=== PATIENT | female | born 1935 | race Asian ===

== ENCOUNTER 2018-10-13 09:27 | Inpatient (IN) | payer OTHER ==
[~2018-10-13] VITALS: Ht 152.4 cm; Wt 39.0 kg
[2018-10-13 09:38] VITALS: Ht 152.4 cm; Wt 39.0 kg
--- NOTE | 2018-10-13 10:11 | NUR ---
AWAKE ALERT ORIENTED ,SON BESIDES BED WHO SPEAKS MOTHER LANGUAGE STATED SHE HAS HIGH BLOOD PRESSURE SINDE 11 DAYS ,IMPROVES WHEN TAKING BP MEDS,ALSO HAS PRESSURE IN HER HEAD, TOOK BP MEDS AT 7AM TODAY
[2018-10-13 10:51] LABS: BASOPHIL % 0.7 % (0-2); PLATELET COUNT 130 x10^3mcL (130-400)
--- NOTE | 2018-10-13 11:00 | NUR ---
FEELS ESTEFANIA, BP IMPROVING SYSTOLIC 178.WALKED STAEDY TO BATHROOM
[2018-10-13 11:26] LABS: CALCIUM 9.3 mg/dL (8.5-10.1); CARBON DIOXIDE 32.9 mmol/L (21-32); CHLORIDE SERUM 106 mmol/L (98-107); GLUCOSE SERUM 94 mg/dL (74-106); POTASSIUM SERUM 4.2 mmol/L (3.5-5.1); SODIUM SERUM 144 mmol/L (136-145)
[2018-10-13 11:31] LABS: ALKALINE PHOSPHATASE 75 U/L (46-116); ALT/SGPT 20 U/L (14-59); AST/SGOT 23 U/L (15-37); BILIRUBIN TOTAL 0.8 mg/dL (0.20-1.00)
--- NOTE | 2018-10-13 12:14 | NUR ---
RESTING IN BED NO COMPLAINTS, PER SON AT TIMES HAS CHEST PRESSURE
[2018-10-13] MEDS ORDERED: ZESTRIL5 MG PO (12:48)
[2018-10-13] MEDS ORDERED: CATAPRES0.1 MG PO (12:49)
--- NOTE | 2018-10-13 12:58 | NUR ---
REPORT TAKEN FROM ER NURSE OVER THE PHONE, WAITING FOR PT TO ARRIVE TO THE UNIT.
--- NOTE | 2018-10-13 13:02 | NUR ---
PT ARRIVED TO THE UNIT AT THIS TIME, AMBULATORY TO THE BED.
[2018-10-13 13:13] VITALS: BP 135/58
--- NOTE | 2018-10-13 13:16 | NUR ---
RECEIVED PT FROM ED VIA STEVE. ORIENTED PT TO ROOM AND SURROUNDINGS. IV NOTED TO LAC PATENT AND INTACT. TELE 4 PLACED ON PT READING NSR. INSTRUCTED PT ON THE USE OF CALL LIGHT FOR ASSISTANCE. ENDORSED PT TO PRIMARY NURSE FREDY
[2018-10-13 13:21] LABS: MAGNESIUM 1.7 mg/dL (1.8-2.4); PHOSPHOROUS 3.8 mg/dL (2.5-4.9)
[2018-10-13 13:22] LABS: CHOLESTEROL/HDL RATIO 2.2
[2018-10-13 16:52] VITALS: BP 104/41
--- NOTE | 2018-10-13 18:50 | NUR ---
PT TOLERATED TREATMENT WELL, IN NAD, WILL REPORT TO AIRWAY CONTROLLER NURSE AND ENDORSE CARE
--- NOTE | 2018-10-13 19:21 | NUR ---
REPORT GIVEN TO CEMENT CONTRACTOR NURSE, CARE ENDORSED
--- NOTE | 2018-10-13 19:23 | NUR ---
RECEIVED REPORT FROM AM NURSE, PT IN BED RESTING. PT AAOX4, SPANISH SPEAKING ONLY. ON TELE#4, DENIES CP/PRESSURE AT THIS TITME. PALPABLE PULSES TO BLE AND BUE, NO EDEMA NOTED. LUNG SOUNDS CTA ON RA, BREATHING EVEN AND UNLABORED, NO SIGNS OF ACUTE DISTRESS NOTED. ABD SOFT AND FLAT, ACTIVE BOWEL SOUNDS X4 QUAD. DENIES N/V AT THIS TIME. VOIDS FREELY BRP. GENERALIZED WEAKNESS, ABLE TO AMBULATE WITH MINIMUM ASSIST. NS RUNNING TO LAC AT 50ML/HR, SITE FREE FROM REDNESS AND SWELLING. FALL PREACATIONS IN PLACE. CALL LIGHT WITHING REACH. WILL CONTINUE TO MONITOR.
[2018-10-13 20:29] VITALS: BP 112/49
--- NOTE | 2018-10-14 01:08 | NUR ---
PT IN BED SLEEPING COMFORTABLY, BREATHING EVEN AND UNLABORED, NO SIGNS OF ACUTE DISTRESS NOTED. BED AT LOWEST POSTION, CALL LIGHT WITHING REACH. WILL CONTINUE TO MONITOR.
[2018-10-14 04:28] LABS: BASOPHIL % 0.7 % (0-2); RED CELL DISTRIBUTION WIDTH 13.2 % (11.5-14.5)
[2018-10-14 04:31] LABS: PLATELET COUNT 116 x10^3mcL (130-400)
[2018-10-14 04:38] LABS: CALCIUM 8.3 mg/dL (8.5-10.1); CARBON DIOXIDE 31.4 mmol/L (21-32); CHLORIDE SERUM 108 mmol/L (98-107); GLUCOSE SERUM 86 mg/dL (74-106); MAGNESIUM 1.7 mg/dL (1.8-2.4); PHOSPHOROUS 3.2 mg/dL (2.5-4.9); POTASSIUM SERUM 3.9 mmol/L (3.5-5.1); SODIUM SERUM 145 mmol/L (136-145)
[2018-10-14 05:12] VITALS: BP 150/56
--- NOTE | 2018-10-14 06:21 | NUR ---
PT SLEPT WELL THROUGHOUT THE NIGHT. BREATHING EVEN AND UNLBORED ON RA. NO ACUTE DISTRESS NOTED. ALL NEEDS ASSESSED AND ATTENDED TO. IV TO LAC INFUSING WELL, SITE WNL. BED AT LOWEST SETTING, CALL LIGHT WITHING REACH. WILL ENDORSE CARE TO AM NURSE.
--- NOTE | 2018-10-14 07:00 | NUR ---
RECEIVED BEDSIDE REPORT FROM CELLOPHANER NURSE. PATIENT IS STABLE NO APPARENT SIGNS OF PAIN, SOB, OR RESPIRATORY DISTRESS. ON ROOM AIR. PATIENT IS RESTING COMFORTABLY IN BED. IV TO LAC IS INFUSING WELL. NO EDEMA OR ERYTHEMA NOTED AT SITE. SCD'S AT BEDSIDE. BED IN LOW POSITION, CALL LIGHT WITHIN REACH. BEDRAILS UP X2. PATIENT SPEAKS MADRIN AND THERE IS A LANGUAGE BARRIER. THE SON MADE A PAPER WITH SOME COMMON WORDS SUCH A PAIN, CHEST PAIN, SIM, [place], BATHROOM, AND CALL SON. PATIENT ABLE TO MAKE NEEDS KNOWN. SAFETY PRECAUTIONS IN PLACE.
--- NOTE | 2018-10-14 07:35 | NUR ---
PHYSICAL ASSESSMENT COMPLETED. PLEASE SEE PROBLEM FOCUSED CARE FOR DETAILS.
--- NOTE | 2018-10-14 07:42 | NUR ---
RECEIVED CALL FROM NUCLEAR MED. PATIENT TO BED PICKED UP AT ABOUT 930. CARDIAC SPIN INSTRUCTOR AT BEDSIDE.
[2018-10-14 07:45] VITALS: BP 149/45
--- NOTE | 2018-10-14 07:49 | NUR ---
PATIENT'S SON CALLED STATED HE WILL BE HERE BEFORE 9AM HE IS ABLE TO HELP WITH COMMUNICATION.
--- NOTE | 2018-10-14 09:37 | NUR ---
ADMINISTERED MEDICATION PER EMAR. PATIENT IS STABLE NO APPARENT SIGNS OF PAIN, SOB, OR RESPIRATORY DISTRESS. TOLORATED WELL. EDUCATED ON NEED FOR MEDICATION, AND ADVERSE EFFECTS TO REPORT. PATIENT SPEAKS MANDARIN AND SON ABLE TO HELP WITH COMMUNICATION. PATIENT AND SON VERBALIZED UNDERSTANDING. QUESTIONS AND CONCERNS ADDRESSED, SAFETY PRECAUTIONS IN PLACE. NUCLEAR MED AT BEDSIDE EXPLAINING PROCEDURE TO SON AND PATIENT. CONSENT SIGNED AND WITNESSED.
--- NOTE | 2018-10-14 10:00 | NUR ---
PATIENT DOWN TO [facility] FOR [facility]DRA SCAN.
--- NOTE | 2018-10-14 11:51 | NUR ---
REVEIVED CALL FROM [email or web address] THAT PATIENT HAD HIGH BP. ELECTRIC SHOVEL OPERATOR ORDERED HYDRALAZINE 10MG IV PUSH ONCE. PATIENT DOWN AT [facility]. UNABLE TO SCAN. PER LAMONT [facility]Y SCAN THROUGH EMAR SCAN MEDICATION. VERIFY MEDICATION AND DOSE WITH CHARGE NURSE ABELARDO. MANUALLY ENTERED SCAN, MEDICATION AND DOSE VERIFIED. MEDICATION ADMINISTERED IN [email or web address].
--- NOTE | 2018-10-14 12:34 | NUR ---
UNALBLE TO ADMINISTER MEDICATIONS. PATIENT IS STILL IN NUC MED FOR [facility]A SCAN.
--- NOTE | 2018-10-14 13:10 | NUR ---
RECEIVED CALL FROM [facility], PATIENT IS IN NUC MED FOR [facility]EXISC[facility], PATIENT C/O CONSTIPATION. PAGED MD TO MAKE AWARE OF PATIENT SYMPTOMS. WAITING FOR CALL BACK.
--- NOTE | 2018-10-14 13:14 | NUR ---
LEXISCAN STRESS TEST DONE
--- NOTE | 2018-10-14 13:17 | NUR ---
RECEIVED CALL FROM MD MUNOZ. MADE AWARE OF PATIENT C/O CONSTIPATION. MD WILL ADD MEDICATION TO THE PATIENT'S EMAR.
--- NOTE | 2018-10-14 15:15 | NUR ---
PATIENT BACK FROM [facility]. PATIENT STABLE NO APPARENT SIGNS OF PAIN, SOB, OR RESPIRATORY DISTRESS. PATIENT C/O CONSTIPATION AND ABD PAIN. AND FLAT FIRM, TENDER TO PALPATION. ADMINISTERED METAMUCIL PER EMAR. PATIENT EDUCATED ON NEED FOR MEDICATION AND ADVERSE REACTIONS TO REPORT. CALL LIGHT WITH IN REACH. FAMILY AT BEDSIDE. QUESTIONS AND CONCERNS ADDRESSED. SAFETY PRECAUTIONS IN PLACE.
[2018-10-14 16:28] VITALS: BP 167/53
--- NOTE | 2018-10-14 17:35 | NUR ---
CONTACTED PHARMACY TO RE SUBMIT MEDICATION SCHEDULED AT 1100 PATIENT WAS NOT ON THE FLOOR. PATIENT WAS AT [facility]. MEDICATION WAS ADMINISTERED. PATIENT TOLORATED WELL. SON AT BEDSIDE TO ASSISST WITH COMMUNICATION. CALL LIGHT WITHIN REACH, BED IN LOW POSITION. QUESTIONS AND CONCERNS ADDRESSED. SAFETY PRECAUTIONS IN PLACE.
--- NOTE | 2018-10-14 17:57 | NUR ---
PATIENT IS STABLE NO APPARENT SIGNS OF PAIN, SOB, OR RESPIRATORY DISTRESS. PATIENT IS ON ROOM AIR. COMPLAINING OF CONSTIPATION. ADMINISTERED MEDICATION PER EMAR. PATIENT HAD TWO STOOLS AFTER JOB DEVELOPER FOR DEAF ADULTS. IV TO LFA IS INFUSING WELL. NO EDEMA OR ERYTHEMA NOTED AT SITE. SON AT BEDSIDE. SCD'S IN PLACE. PATIENT HAD LEXISCAN TODAY. WHILE AT LEXISCAN PATIENT HAD INCREASED BP. ADMINISTERED HYDROLAZINE IVP. PATIENT HAD CONSTIPATION AND ISSUES HAVING BM WHILE AT [facility]EX[facility]. PER NUC MED TECH PATIENT TRIED TO DIGITALLY REMOVE THE STOOL FROM ANUS. PATIENT HAD ONE EPISODE OF PINK TINGED STOOL. PATIENT IS RESTING COMFORTABLY IN BED. WILL ENDORSE CARE TO LOTUS NOTES DEVELOPER NURSE.
--- NOTE | 2018-10-14 18:15 | NUR ---
DOCTOR ALEXANDER MADE AWARE OF NPO STATUS, AND LEXISCAN RESULTS. MD WILL CHANGE DIET TO CARDIAC DIET.
[2018-10-14 18:54] VITALS: BP 153/54
--- NOTE | 2018-10-14 19:00 | NUR ---
RECEIVED PT FROM DAY SHIFT RN. PT IS ALERT AND ORIENTED AND CURRENTLY RESTING IN BED. PT IS MANDARIN SPEAKING. GRANDSON IS AT THE BEDSIDE AND IS ABLE TO HELP TRANSLATE COMMUNICATION. PT IS NOT SYMPTOMATIC FOR CHEST PAIN OR SHORTNESS OF BREATH ON ROOM AIR. THERE ARE NO USE OF ACCESSORY MUSCLES OR LABORED BREATHING. S1 AND S2 HEARD UPON AUSCULTATION. HR 74 AT THIS TIME. POSITIVE CIRCULATION. NO EDEMA PRESENT AND PULSES ARE PALPABLE. NO SIGNS OF DISTRESS AT THIS TIME. SAFETY MEASURES ARE IN PLACE. CALL LIGHT IS WITHIN REACH. WILL CONTINUE TO MONITOR.
--- NOTE | 2018-10-14 19:24 | NUR ---
ENDORSED CARE TO INFORMATICS NURSE SPECIALIST NURSE ELLY.
[2018-10-14 21:29] VITALS: BP 134/70
--- NOTE | 2018-10-15 04:38 | NUR ---
PT BP: 173/64 WILL ADMINISTER HYDRALAZINE PER ORDER
--- NOTE | 2018-10-15 05:24 | NUR ---
PT HAVING LOOSE STOOLS. MD AWARE WILL ADMINISTER IMODIUM PER ORDER.
[2018-10-15 05:58] VITALS: BP 112/55
--- NOTE | 2018-10-15 07:00 | NUR ---
RECEIVED BEDSIDE RESPORT FROM SAMPLE PASTER NURSE ELLY. PATIENT IS STABLE NO APPARENT SIGNS OF PAIN, SOB, OR RESPIRATORY DISTRESS. ON ROOM AIR. PATIENT IS RESTING COMFORTABLY IN BED. THERE IS A LANGUAGE BARRIER, THE PATIENT HAS A PIECE OF PAPER WITH WORDS SUCH PAIN, CHEST PAIN, BATHROOM, HEADACHE, WATER, AND SON'S PHONE NUMBER ON IT TO HELP WITH SIMPLE COMMUNICATION. PATIENT STATES SHE IS "OK" AND DENIES NEEDS AT THIS TIME. IV TO LFA IS PATENT, FREE FROM EDEMA OR ERYTHEMA. CALL LIGHT WITHIN REACH. BED IN LOW POSITION. SAFETY PRECAUTIONS IN PLACE.
[2018-10-15 07:13] LABS: RED CELL DISTRIBUTION WIDTH 13.1 % (11.5-14.5)
[2018-10-15 07:19] LABS: PLATELET COUNT 123 x10^3mcL (130-400)
[2018-10-15 07:22] LABS: CARBON DIOXIDE 24.1 mmol/L (21-32); CHLORIDE SERUM 105 mmol/L (98-107); CREATININE SERUM 0.9 mg/dL (0.6-1.0); GLUCOSE SERUM 105 mg/dL (74-106); MAGNESIUM 1.7 mg/dL (1.8-2.4); PHOSPHOROUS 3.5 mg/dL (2.5-4.9); POTASSIUM SERUM 3.6 mmol/L (3.5-5.1); SODIUM SERUM 141 mmol/L (136-145)
--- NOTE | 2018-10-15 07:25 | NUR ---
PAGED MD MUNOZ TO MAKE AWARE OF LAB RESULT FOR WBC 21.1. WAITING FOR MD TO CALL BACK.
[2018-10-15 08:18] VITALS: BP 130/54
--- NOTE | 2018-10-15 09:02 | NUR ---
ADMINISTERED MEDICATION PER EMAR. PATIENT EDUCATED ON NEED FOR MEDICATON, WELL ADVERSE EFFECTS TO REPORT. PATIENT VERBALIZED UNDERSTANDING. QUESTIONS AND CONCERNS ADDRESSED. SAFETY PRECAUTIONS IN PLACE.
--- NOTE | 2018-10-15 09:50 | NUR ---
DR. SHERIFF AND RESIDENT TEAM ROUNDING AT BEDSIDE.
[2018-10-15 09:54] LABS: BAND NEUTROPHIL 9 % (0-10); BASOPHIL 0 % (0-2); SEGMENTED NEUTROPHILS 89 % (37-75)
[2018-10-15 09:55] LABS: rbc morphology (normal/abnorm) ABNORMAL (NORMAL)
[2018-10-15 09:56] LABS: ovalocyte/elliptocyte 1+
--- NOTE | 2018-10-15 11:20 | NUR ---
PATIETN IS STABLE NO APPARENT SIGN SOF PAIN, SOB, OR RESPIRATORY DISTRESS. PATIENT'S SON AT BEDSIDE TO HELP WITH COMMUNICATION. PATIENT DENIES OTHER NEEDS AT THIS TIME. QUESTIONS AND CONCERNS ADDRESSED. SAFETY PRECAUTIONS IN PLACE.
--- NOTE | 2018-10-15 12:09 | NUR ---
PATIENT RESTING COMFORTABLY IN BED. NO APPARENT SIGNS OF PAIN, SOB, OR RESPIRATORY DISTRESS. PATIENT DENIES OTHER NEEDS AT THIS TIME. SAFETY PRECAUTIONS IN PLACE.CALL LIGHT WITHIN REACH. FAMILY AT BEDSIDE.
[2018-10-15 12:28] VITALS: BP 134/53
--- NOTE | 2018-10-15 14:32 | NUR ---
PATINET IS STABLE, NO APPARENT SIGNS OF PAIN, SOB, OR RESPIRATORY DISTRESS. PATIENT'S SON AT BEDSIDE FOR HELP WITH COMMUNICATION. PATIENT DENIES CHEST PAIN, AND OTHER NEEDS AT THIS TIME. CALL LIGHT WITHIN REACH. QUESTIONS AND CONCERNS ADDRESSED. SAFETY PRECAUTIONS IN PLACE.
[2018-10-15 14:35] LABS: RED CELL DISTRIBUTION WIDTH 13.3 % (11.5-14.5)
[2018-10-15 14:49] LABS: PLATELET COUNT 110 x10^3mcL (130-400)
--- NOTE | 2018-10-15 14:56 | NUR ---
SPOKE WITH MD MUNOZ REGARDING CRITICAL LAB VALUE WBC 22.6. PER MD SHE WILL SPEAK WITH ATTENDING REGARDING PLAN.
[2018-10-15 15:09] LABS: BAND NEUTROPHIL 11 % (0-10); BASOPHIL 0 % (0-2); MONOCYTE 3 % (0-7); SEGMENTED NEUTROPHILS 85 % (37-75)
[2018-10-15 15:11] LABS: rbc morphology (normal/abnorm) NORMAL (NORMAL)
[2018-10-15 15:12] LABS: PLATELET MORPHOLOGY PLATELETS NORMAL
[2018-10-15 17:42] VITALS: BP 132/46
--- NOTE | 2018-10-15 18:32 | NUR ---
PATIENT IS STABLE NO APPARENT SIGNS OF PAIN, SOB, OR RESPIRATORY DISTRESS. PATIENT IS ON ROOM AIR. IV TO LEFT AC IN INFUSING WELL, NO EDEMA OR ERYTHEMA NOTED TO SITE. PATIENT RESTING COMFORTABLY IN BED KEL AGUILERA AT BEDSIDE. SCD'S IN PLACE. BED IN LOW POSITION. CALL LIGHT WITHIN REACH. FAMILY AT BEDSIDE. QUESTIONS AND CONCERNS ADDRESSED. SAFETY PRECAUTIONS IN PLACE. WILL ENDORSE CARE TO SENIOR MECHANICAL TECHNICIAN NURSE.
--- NOTE | 2018-10-15 19:00 | NUR ---
RECEIVED PT FROM DAY SHIFT RN. PT IS ALERT AND ORIENTED AND CURRENTLY RESTING IN BED. FAMILY IS AT THE BEDSIDE. PT IS MANDARIN SPEAKING ONLY. ON ASSESSMENT THERE ARE NO SYMPTOMS OF CHEST PAIN OR SHORTNESS OF BREATH ON ROOM AIR. BREATHING IS EVEN AND UNLABORED AND THERE ARE NO USE OF ACCESSORY MUSCLES OR LABORED BREATHING. PT DENIES ABD PAIN AT THIS TIME. BOWEL SOUNDS ARE ACTIVE AND ABD IS SOFT TO TOUCH. STARTED PT ON FIRST DOSE OF IV LEVAQUIN THROUGH AN LFA IV THAT IS CLEAN DRY AND INTACT. PT IS IN NO APPARENT DISTRESS AT THIS TIME. TELE MONITOR #[address] SAFETY MEASURES ARE IN PLACE. CALL LIGHT IS WITHIN REACH. BED IN LOWEST POSITION. WILL CONTINUE TO MONITOR.
--- NOTE | 2018-10-15 19:53 | NUR ---
TYLENOL [address] TY ORDER TO PREVENT FEVER.
--- NOTE | 2018-10-15 20:51 | NUR ---
REASSESSED TEMPERATURE: 98.6 PT DENIES PAIN
[2018-10-15 21:54] VITALS: BP 121/55
[2018-10-15 22:15] LABS: UA SPECIFIC GRAVITY 1.025 (1.005-1.035); microscopic required? YES; urine erythrocyte TRACE (NEGATIVE)
[2018-10-15 22:35] LABS: AMPHETAMINE QUAL UR NONE DETECTED (See below)
--- NOTE | 2018-10-16 01:49 | NUR ---
PT RESTING IN BED WITH EYES CLOSED. NO FACIAL GRIMMMACING OR DISTRESS NOTED. BREATHING IS EVEN AND UNLABORED. WILL CONTINUE TO MONITOR.
--- NOTE | 2018-10-16 05:10 | NUR ---
PT SLEP THROUGHOUT THE NIGHT. NO SIGNIFICANT CHANGES. PT CURRENTLY RESTING IN BED WITH EYES CLOSED. NO FACIAL GRIMMACING OR DISTRESS NOTED. BREATHING IS EVEN AND UNLABORED. CALL LIGHT WITHIN REACH. WILL ENDORSE CONTINUITY OF CARE TO THE DAY SHIFT RN.
[2018-10-16 06:59] LABS: RED CELL DISTRIBUTION WIDTH 13.3 % (11.5-14.5)
[2018-10-16 07:01] VITALS: BP 134/51
[2018-10-16 07:02] LABS: BASOPHIL % 0 % (0-2); PLATELET COUNT 102 x10^3mcL (130-400)
[2018-10-16 07:04] LABS: CALCIUM 8.9 mg/dL (8.5-10.1); CARBON DIOXIDE 24.1 mmol/L (21-32); CHLORIDE SERUM 107 mmol/L (98-107); CREATININE SERUM 1.1 mg/dL (0.6-1.0); GLUCOSE SERUM 98 mg/dL (74-106); PHOSPHOROUS 2.6 mg/dL (2.5-4.9); POTASSIUM SERUM 4.2 mmol/L (3.5-5.1); SODIUM SERUM 142 mmol/L (136-145)
--- NOTE | 2018-10-16 07:40 | NUR ---
RECEIVED PATIENT SLEEPING IN BED, AROUSABLE. NO ACUTE DISTRESS NOTED. TELE MONITOR IN PLACE, DENIES CHEST PAIN. DENIES SOB, ON ROOM AIR. PATIENT IS AMBULATORY WITH ASSIST. NS IV INFUSING TO LAC AT 50 ML/HR, IV SITE CDI & PATENT, NO S/S OF INFILTRATION. CALL LIGHT WITHIN REACH, BED IN LOW POSITION, WILL CONTINUE TO MONITOR FOR CHANGES.
[2018-10-16 09:11] VITALS: BP 145/59
--- NOTE | 2018-10-16 09:36 | NUR ---
PATIENT REFUSED TO GO DOWN FOR CT, PATIENT STATED "MEDICATION HAS BEEN HELPING". PATIENT WILL SPEAK TO DOCTOR FIRST, WILL FOLLOW UP WITH DOCTOR.
--- NOTE | 2018-10-16 10:06 | NUR ---
Initial Nutrition Assessment: Lamin Cat 217T-A Dx: Non-Stemi uncontrolled BP PMHx: HTN PSHx: Cholecystectomy (16 years ago) Labs: (10/16) BUN:24H, Cr: 1.1H, WBC:19.3H, H/H:11.9/35L Meds: Flagyl, Lactinex, Levoquin, Lovenox, Mg oxide, Tylenol, Zestril, Zofran Diet: Cardiac PO Intake: (10/15) B:30% D:50% PO intake x 2 meals:40% Ht: 60in, 5ft Wt:86#, 39.037kg BMI: 16.8kg/m2 (underweight) Bed scale: 44.3kg, 97# (does not seem accurate due to equipments and multiple blankets and pillows on bed) IBW:100#, 45kg %IBW:86% UBW: 80# per pt's son Age: 83 y/o female Food Allergies: NKFA Skin: intact Josue: 19 Edema: None GI:active bowel sounds Last BM: 10/15 Per H&P, came into the ER with c/o CP and difficulty breating since 4am. Per progress note 10/16, pt with c/o abd pain. Lisinopril 5mg and titrated up as needed. During visit, pt was seen laying in bed with son at bedside. Per pt's son, his mother has barely eaten. Pt's son has been bringing outside food (rice porridge with pickles) and pt only ate 50%. Recommended adding Ensure Enlive for more protein and kcals. Pt and son requested ONS to be at room temperature due to cold drinks upset pt's stomach. Pt's son said he will talk to the doctor about getting discharged today. Problem with: N/V/D/C: No Problems with: Chewing/ Swallowing: No Current appetite: Poor Recent wt change:+6# %wt change:-7.5% Vitamin/Supplement use: No Special diet at home: Regular Physical activity: No Nutrition education given: Offered low sodium diet education handout and son declined, stating once his mom is discharged they will follow a low Na diet due to her HTN and he knows what foods to avoid. Food-drug interactions? Flagyl GI problems Education given?Yes, verbal diet education Estimated Nutritional Needs Based on ideal body weight:45kg Energy: 1125-1350kcal/d (25-30kcal/kg for maintenance) Protein: 45-54g/d (1.0-1.2g/kg for geriatric maintenance)- Fluid:4544-8549 ml/d (1 ml/kcal) or per doctor Nutrition Diagnosis 1. Inadequate protein/energy intake related to lethargy and not liking hospital food as evidenced by PO intake 40% x 2 meals. Intervention 1. Recommend adding Ensure Enlive BID (provides 700kcal and 40g protein) to cardiac diet. Monitor/Evaluate Goal: PO intake at least 75% of estimated needs Monitor: PO intake, Labs, GI function F/U in 2-3 days as high risk:10/18-
--- NOTE | 2018-10-16 10:07 | NUR ---
1. Recommend adding Ensure Enlive BID (provides 700kcal and 40g protein) to cardiac diet.
[2018-10-16 12:50] VITALS: BP 149/60
[2018-10-16] MEDS ORDERED: FLA500 PO (14:04)
[2018-10-16] MEDS ORDERED: HYDRALAZINE HCL25 MG PO ×2 (14:04→14:44)
[2018-10-16] MEDS ORDERED: LEVAQUIN750 MG PO ×2 (14:04→14:44)
[2018-10-16] MEDS ORDERED: GOOD SENSE ASPI81 M3 PO (14:04)
[2018-10-16] MEDS ORDERED: LAC PO (14:04)
[2018-10-16] MEDS ORDERED: NOVAPLUS LIDOCAI5 ML TOP (14:46)
[2018-10-16 15:14] VITALS: BP 149/60
--- NOTE | 2018-10-16 15:50 | NUR ---
PATIENT WAS DISCHARGED HOME, AT BEDSIDE. PATIENT WAS TAKEN DOWN VIA WHEELCHAIR BY AEROPHYSICIST. PATIENT WAS STABLE UPON DISCHARGE, NO ACUTE CHANGES THROUGH OUT SHIFT. IV TO LAC REMOVED, CATH INTACT. TELE MONITOR AND ARMBANDS REMOVED. PATIENT AND RECEIVED COPY OF D/C INSTRUCTIONS. PATIENT & UNDERSTAND & AND AGREE WITH PLAN OF CARE & INSTRUCTIONS, INCLUDING FOLLOW UP WITH PCP & MEDICATIONS. ALL QUESTIONS AND CONCERNS ADDRESSED. PATIENT TOOK HOME ALL PERSONAL BELONGINGS.
== END 2018-10-16 15:46 | disposition home or self-care (01) | DRG 190 ==
LOC: ED 09:27 → DU 12:04
PROVIDERS: Emergency Medicine; ADMIT Internal Medicine
DX: I21.4 Non-ST elevation (NSTEMI) myocardial infarction (principal); E83.42 Hypomagnesemia; I16.1 Hypertensive emergency; Z66 Do not resuscitate; I10 Essential (primary) hypertension; D72.829 Elevated white blood cell count, unspecified; Z90.49 Acquired absence of other specified parts of digestive tract; Z88.8 Allergy status to other drugs, medicaments and biological substances
CPT/HCPCS: 83880; 87046; 87046-59; A9500; G0378; J0360; J1956; J2785; J3490; J7030; Q0092

== ENCOUNTER 2018-10-17 09:00 | Inpatient (IN) | payer OTHER ==
[~2018-10-17] VITALS: Ht 157.5 cm; Wt 36.3 kg
[~2018-10-17 09:00] MED LIST: CATAPRES0.1 MG PO; FLA500 PO; GOOD SENSE ASPI81 M3 PO; HYDRALAZINE HCL25 MG PO; LAC PO; LEVAQUIN750 MG PO; NOVAPLUS LIDOCAI5 ML TOP; ZESTRIL5 MG PO
--- NOTE | 2018-10-17 09:17 | NUR ---
BROUGHT IN BY AMBULANCE AWAKE ALERT, PER SON WAS [place]CHARG[place] [facility] [place]ESS [place] DONE WHICH WAS NORMAL PER SON, TODAY SON NOTICED SHE HAS FAST HEART RATE,MINIMAL CHEST PRESSURE.
[2018-10-17 09:39] LABS: CALCIUM 8.6 mg/dL (8.5-10.1); CARBON DIOXIDE 23.4 mmol/L (21-32); CHLORIDE SERUM 102 mmol/L (98-107); CREATININE SERUM 0.9 mg/dL (0.6-1.0); GLUCOSE SERUM 97 mg/dL (74-106); SODIUM SERUM 138 mmol/L (136-145)
[2018-10-17 09:44] LABS: ALBUMIN 3.2 g/dL (3.4-5.0); ALKALINE PHOSPHATASE 60 U/L (46-116); ALT/SGPT 34 U/L (14-59); AST/SGOT 59 U/L (15-37); BILIRUBIN TOTAL 0.8 mg/dL (0.20-1.00); TOTAL PROTEIN, SERUM 5.9 g/dL (6.4-8.2)
--- NOTE | 2018-10-17 11:03 | NUR ---
RESTING IN BED NO COMPLAINTS ,PLANNING LEAD IN SR NO ECTOPY,RESP. EAY ,WALKING STEADY TO BATHROOM
[2018-10-17 11:05] LABS: RED CELL DISTRIBUTION WIDTH 13.1 % (11.5-14.5)
[2018-10-17 11:08] LABS: BASOPHIL % 0 % (0-2); PLATELET COUNT 97 x10^3mcL (130-400)
--- NOTE | 2018-10-17 12:20 | NUR ---
PATIENT WAS BROUGHT IN FROM ER AT THIS TIME, BY NURSE AND EMT, VIA [employer]. SON IS WITH PATIENT, AND IS ABLE TO ASSIST PATIENT WITH COMMUNICATION, SINCE PATIENT IS MANDARIN SPEAKING. PATIENT IS ABLE TO AMBULATE WITH ASSISTANCE. PATIENT IS ALERT AND ORIENTED TO PERSON, PLACE AND TIME, AND ABLE TO FOLLOW COMMANDS, WITH ASSISTANCE OF THE SON INTERPRETING. PATIENT IS ON ROOM AIR, BREATHING ADEQUATELY WITH NO SIGNS OF RESPIRATORY DISTRESS NOTED. PATIENT HAS IV ACCESS NOTED TO RAC, 20 G. PATIENTS SKIN IS INTACT WITH BUE ECCHYMOSIS NOTED. PATIENT IS INSTRUCTED ON USING THE CALL LIGHT, PATIENT INDICATED UNDERSTANDING. PATIENT STABLE, CALL LIGHT IS WITHIN REACH, WILL CONTINUE TO MONITOR.
[2018-10-17 12:27] LABS: MAGNESIUM 1.8 mg/dL (1.8-2.4); PHOSPHOROUS 3.4 mg/dL (2.5-4.9)
[2018-10-17 12:29] VITALS: BP 169/63
[2018-10-17 12:30] LABS: CHOLESTEROL/HDL RATIO 2.6
--- NOTE | 2018-10-17 15:33 | NUR ---
MRSA SWAB COLLECTED AT THIS TIME. ASSESSED PATIENT AT THIS TIME. SON AT BEDSIDE, PER SON, PATIENT STATES NO PAIN AT THIS TIME. WILL CONTINUE TO MONITOR.
[2018-10-17 17:23] VITALS: BP 155/65
--- NOTE | 2018-10-17 19:25 | NUR ---
REPORT GIVEN TO JASMYN LOPES. ALL QUESTIONS ANSWERED.
--- NOTE | 2018-10-17 19:27 | NUR ---
NURSING CO-SIGN THE DOCUMENTATION ENTERED BY THE RN ZEE HAS BEEN REVIEWED. REVIEWED/CO-SIGNED BY: Alecia Curran DOCUMENTATION DONE BY:Kezia RANDLE
--- NOTE | 2018-10-17 20:00 | NUR ---
RECEIVED PT IN BED AWAKE, ALERT, ORIENTED X4. TELE 26 SHOWS NSR WITH ELEVATED T WAVE. DENIES CHEST PAIN. LUNG SOUNDS CLEAR. BREATHING EASILY ON ROOM AIR. BS ACTIVE IN ALL FOUR QUADS. STOOL TO BE COLLECTED, PLACED SPECIMEN CONTAINER IN BATHROOM. PT IS VOIDING FREELY. AMBULATES WITH ASSISTANCE. FULL ROM. SKIN CDI. NS INFUSING AT 70ML/HR TO LAC. SHIFT ASSESSMENT COMPLETED. CALL LIGHT WITHIN REACH. BED IS IN LOWEST POSITION. WILL CONTINUE TO MONITOR CLOSELY.
[2018-10-17 20:52] VITALS: BP 154/59
--- NOTE | 2018-10-18 03:00 | NUR ---
ATTEMPTED MULTPLE TIMES TO COLLECT STOOL SPECIMEN, HOWEVER, PT VOIDED AT THE SAME TIME. ALSO, PT DID NOT HAVE MUCH BM TO COLLECT, APPEARS TO BE PASSING GAS WITH SCANT AMOUNT OF LIGHT PINK/BROWN MUCOUS BEING EXCRETED.
[2018-10-18 05:25] VITALS: BP 162/68
--- NOTE | 2018-10-18 06:10 | NUR ---
PT BP 162/68, APRESOLINE GIVEN ORDERED PRN FOR HTN.
[2018-10-18 06:32] LABS: BASOPHIL % 0.3 % (0-2); RED CELL DISTRIBUTION WIDTH 13.1 % (11.5-14.5)
[2018-10-18 06:40] LABS: CALCIUM 8.2 mg/dL (8.5-10.1); CARBON DIOXIDE 24.6 mmol/L (21-32); CHLORIDE SERUM 105 mmol/L (98-107); CREATININE SERUM 0.8 mg/dL (0.6-1.0); GLUCOSE SERUM 81 mg/dL (74-106); MAGNESIUM 1.6 mg/dL (1.8-2.4); PHOSPHOROUS 2.8 mg/dL (2.5-4.9); POTASSIUM SERUM 3.6 mmol/L (3.5-5.1); SODIUM SERUM 141 mmol/L (136-145)
[2018-10-18 06:47] LABS: PLATELET COUNT 98 x10^3mcL (130-400)
--- NOTE | 2018-10-18 07:10 | NUR ---
RECEIVED PT FROM NIGHT NURSE. PT IS SITTING UP IN BED AND IS REQUESTING TO USE THE BATHROOM. ASSISTED PT TO THE RESTROOM, BALANCE AND GAIT STEADY, AMBULATES WELL WITH ASSISTANCE. PT URINATED, CULTURE OBTAINED AND SENT TO LAB. SMALL AMOUNT OF DARK BROWN/RED STOOL, NOT ENOUGH FOR STOOL SAMPLE. ASSISTED PT BACK TO BED AND MADE COMFORTABLE IN BED. PT LOOKS TO BE IN NO ACUTE DISTRESS AT THIS TIME. RESPIRATIONS EVEN AND UNLABORED ON ROOM AIR. TELE MONITOR PRESENT. IV SITE PATENT WITH IV FLUIDS INFUSING. BED IN LOWEST POSITION, CALL LIGHT WITHIN REACH. WILL CONTINUE TO MONITOR.
[2018-10-18 08:47] LABS: microscopic required? NO
[2018-10-18 09:50] LABS: urine erythrocyte NEGATIVE (NEGATIVE)
[2018-10-18 09:55] VITALS: BP 156/78
--- NOTE | 2018-10-18 13:30 | NUR ---
PT HAD A BOWEL MOVEMENT. BM WAS ENOUGH FOR THE STOOL SAMPLE. SENT STOOL SAMPLE DOWN TO LAB. PURA DEL REAL TO MONITOR.
[2018-10-18 13:40] VITALS: BP 156/76
--- NOTE | 2018-10-18 14:58 | NUR ---
Initial Nutrition Assessment: 251T/B PHILLIP JULIAN IA HR Dx: elevated trop, dehydration PMHx: HT for 16 years taking medication, Admitted for chest pain 3 days ago, ruled out ischemia. PSHx: Cholecystectomy (16 years ago) Labs: CA 8.2L, AST 59H Meds: Lactinex, flagyl, zofran Diet: BRAT (cardiac) PO Intake: (10/17) lunch, dinner - 40% each Ht: 157.48 cm (62") Wt: 36.2 kg (80#) BMI: 14.6 kg/m2 (underweight) Bed scale: 36.8 kg IBW: 110# (50 kg) %IBW: 73 UBW: unable to access as pt was unaware Age: 83/F Food Allergies: NKFA Skin: intact Josue: 19 Edema: none GI: small amt of watery stool Last BM: 10/18 Per H&P, Pt is a 83 year old female who has H/O HT came in with complaints of increased heart rate and loose stools. Patient was admitted to the hospital 3 days ago for a non-STEMI secondary to hypertension. While in the hospital patient underwent cardiac workup which reveals no evidence of ischemic changes on stress test. RDN Visit (10/18): Patient only spoke mandarin. LOCKSTITCH TOPSTITCHER helped in translation. Patient said that her appetite is poor and she eats food brought from home. Patient said she ate little porridge brought from home for breakfast. Patient looked extremely emaciated and underweight. Patient refused to consume and oral nutritional supplement. Problem with: N/V/D/C: no Problems with: Chewing/Swallowing: none Current appetite: poor Recent wt change: unable to access %wt change: N/A Vitamin/Supplement use: none Special diet at home: regular Physical activity: walking Nutrition education given: PO intake was encouraged. No specific diet education provided at this time. Food-drug interactions: Lactinex- high fiber w/0616-1376 ml fluids Education given: none Estimated Nutritional Needs Based on current body weight 36.8 kg Energy: 7599-6175 kcal/d (35-40 kcal/kg) - underweight Protein: 44-47.8g/d (1.2-1.3 g/kg) - geriatric maintenance Fluid: 9682-6730 ml/d (1 ml/kcal) or per doctor Nutrition Diagnosis 1. Malnutrition related to poor PO as evidenced by BMI 14.6 kg/m2. 2. Altered GI function related to medical condition as evidenced by diarrhea. 3. Inadequate oral intake related to poor appetite as evidenced by documented PO of 40% and self- reported poor PO. Intervention 1. Recommend continuing BRAT diet as tolerated. Monitor/Evaluate Goal: PO intake at least 75% of estimated needs Monitor: PO intake, Labs, GI function F/U in 2-3 days as high risk 10/20-
--- NOTE | 2018-10-18 14:58 | NUR ---
1. Recommend continuing BRAT diet as tolerated.
--- NOTE | 2018-10-18 16:45 | NUR ---
PT IS LAYING DOWN IN BED WITH HOB UP. PT LOOKS TO BE IN NO ACUTE DISTRESS AND DENIES ANY PAIN AT THIS TIME. IV SITE PATENT WITH NO SIGNS OF ERYTHEMA OR SWELLING WITH IV FLUIDS INFUSING. FAMILY MEMBER AT BEDSIDE. BED IN LOWEST POSITION, CALL LIGHT WITHIN REACH. WILL CONITNUE TO MONITOR.
[2018-10-18 17:45] VITALS: BP 152/78
[2018-10-18 18:04] VITALS: Ht 157.5 cm; Wt 36.3 kg
--- NOTE | 2018-10-18 18:59 | NUR ---
PT IS LAYING DOWN IN BED WITH HOB UP. PT LOOKS TO BE IN NO ACUTE DISTRESS AND DENIES ANY PAIN AT THIS TIME. RESPIRATIONS EVEN AND UNLABORED ON ROOM AIR. IV SITE PATENT WITH NO SIGNS OF ERYTHEMA OR SWELLING WITH IV FLUIDS INFUSING. FAMILY MEMBER AT BEDSIDE, BED IN LOWEST POSITION, CALL LIGHT WITHIN REACH. WILL ENDORSE TO ONCOMING SHIFT.
--- NOTE | 2018-10-18 20:00 | NUR ---
RECEIVED PT IN BED, RESTING QUIETLY. A/O X4. ABLE TO MAKE NEEDS KNOWN. RESP. EVEN AND UNLABORED. ON ROOM AIR, LUNG SOUNDS CLEAR. NO ACUTE DISTRESS NOTED. NO TELE, DENIES CP OR ANY DISCOMFORT. IVF, NS AT 70ML/HR, INTACT AND INFUSING VIA JAYDEN, SITE CLEAR. ABLE TO MOVE ALL EXTS. VOIDING FREELY. ASSISTED WITH HS CARE. CALL LIGHT WITHIN REACH. WILL CONTINUE TO MONITOR.
[2018-10-18 22:30] VITALS: BP 183/71
--- NOTE | 2018-10-19 01:06 | NUR ---
STOOL POSITIVE FOR C.DIFFICILE, PT PLACED ON CONTACT ISOLATION PRECAUTION. WILL CONTINUE TO MONITOR.
--- NOTE | 2018-10-19 02:24 | NUR ---
RESTING QUIETLY IN BED, WITH EYES CLOSED, APPEARS ASLEEP , EASILY AROUSABLE. RESP. EVEN AND UNLABORED. NO ACUTE DISTRESS NOTED. WILL CONTINUE TO MONITOR.
[2018-10-19 05:27] VITALS: BP 155/78; BP 181/70
--- NOTE | 2018-10-19 05:55 | NUR ---
B/P READING SHOWS 175/62. HYDRALAZINE PO GIVEN ORDERED. WILL CONTINUE TO MONITOR.
--- NOTE | 2018-10-19 06:19 | NUR ---
DENIES ANY DISCOMFORT AT THIS TIME. RESP. EVEN AND UNLABORED. ON ROOM AIR, NO ACUTE DISTRESS NOTED. AFEBRILE AND WILL RECHECK B/P READING. DUE MEDS GIVEN ORDERED, HENRI. WELL. IVF INTACT AND INFUSING WELL, SITE CLEAR NO COMPLAINTS NOTED.KEPT COMFORTABLE. WILL CONTINUE TO MONITOR.
[2018-10-19 06:23] VITALS: BP 176/72
[2018-10-19 06:37] LABS: BASOPHIL % 0.2 % (0-2); RED CELL DISTRIBUTION WIDTH 12.9 % (11.5-14.5)
--- NOTE | 2018-10-19 06:43 | NUR ---
B/P RECHECK SHOWS 169/61. WILL ENDORSE TO INCOMING NURSE.
[2018-10-19 06:45] VITALS: BP 169/61
[2018-10-19 06:45] LABS: PLATELET COUNT 102 x10^3mcL (130-400)
[2018-10-19 07:08] LABS: CALCIUM 7.6 mg/dL (8.5-10.1); CARBON DIOXIDE 25.7 mmol/L (21-32); CHLORIDE SERUM 105 mmol/L (98-107); CREATININE SERUM 0.7 mg/dL (0.6-1.0); GLUCOSE SERUM 84 mg/dL (74-106); MAGNESIUM 1.3 mg/dL (1.8-2.4); PHOSPHOROUS 2.9 mg/dL (2.5-4.9); POTASSIUM SERUM 3.2 mmol/L (3.5-5.1); SODIUM SERUM 142 mmol/L (136-145)
--- NOTE | 2018-10-19 07:16 | NUR ---
REPORT TAKEN FROM FORENSIC INVESTIGATOR NURSE AT THE BEDSIDE, PT SLEEPING AND DID NOT AWAKE FOR REPORT, CHEST RISE AND FALL OBSERVED, FLUIDS RUNNING TO RIGHT UPPER ARM, SITE IS CDI, WITH NO SIGNS OF INFILTRATION. CONTACT PRECAUTIONS IN PLACE PT TESTED POSITVE FOR C.DIFF. WILL CONTINUE TO MONITOR.
[2018-10-19 09:00] VITALS: BP 161/76
--- NOTE | 2018-10-19 10:04 | NUR ---
PT'S FAMILY (SON) ADVISED TO WEAR GOWN AND GLOVES WHEN IN THE ROOM WITH THE PT, AND WASH HANDS WITH SOAP AND WATER TO PREVENT THE SPREAD OF INFECTION, HE VERBALIZED UNDERSTANDING.
[2018-10-19 17:15] VITALS: BP 157/72
--- NOTE | 2018-10-19 19:30 | NUR ---
RECIEVED PATIENT AT START OF SHIFT A/O X4. MANADRIN SPEAKING WITH SOME GREEK. APPEARS COMFORTABLE. SHAKES HEAD WHEN ASKED IF IN PAIN. NO SOB ON RA. IV TO JAYDEN IS SALINE LOCKED AND PATENT. BED LOCKED AND IN LOWEST POSIITON. CALL LIGHT WITHIN REACH. CONTACT PRECAUTIONS IN PLACE FOR POSITIVE C DIFF.
--- NOTE | 2018-10-19 19:34 | NUR ---
REPORT GIVEN TO SOCIAL MEDIA ANALYST NURSE CARE ENDORSED
[2018-10-19 20:12] VITALS: BP 147/59
--- NOTE | 2018-10-19 22:00 | NUR ---
PATIENT REQUESTED WARM WATER WITH SUGAR. PROVIDED WITH HER SCHEDULED ANTIBIOTICS. PATIENT RESTING IN BED. CALL LIGHT WITHIN REACH. IV INFUSING WITHOUT ERYTHEMA OR INFILTRATION.
[2018-10-20 05:45] VITALS: BP 150/61
--- NOTE | 2018-10-20 06:45 | NUR ---
PATIENT IS AWAKE, TRANSFER CAR OPERATOR AT BEDSIDE TO PERFORM ABDOMINAL ULTRASOUND. BED LOCKED. CALL LIGHT WITHIN REACH. IV INFUSING WELL. WILL ENDORSE CARE TO MORNING NURSE.
--- NOTE | 2018-10-20 07:17 | NUR ---
ASSUMED CARE OF PATIENT. RECIEIVNG ABDOMINAL ULTRASOUND THIS MORNING. NO COMPLAINTS OF PAIN OR DISCOMFORT AT THIS TIME. NO ACUTE DISTRESS NOTED. IV ON JAYDEN SALINE LOCKED AT THIS TIME. WILL CONTINUE TO MONITOR.
--- NOTE | 2018-10-20 07:47 | NUR ---
SARA DEWITT NOTIFIED THAT PATIENT REFUSED LABS THIS AM.
[2018-10-20 08:30] VITALS: BP 142/59
--- NOTE | 2018-10-20 09:08 | NUR ---
PATIENT SON REQUESTING INFORMATION REGARDING MOTHER. CONCERNED THAT DUE TO MEDICATION SIDE EFFECTS FROM ANTIBIOTICS, MOTHER IS NOT EATING MUCH SHE SHOULD. STATES SHE FEELS NAUSEOUS DURING MEALS AND HAS BEEN UNABLE TO EAT. SON IS REQUESTING NUTRITION THROUGH THE IV. PROPOSED TO UTILIZE ZOFRAN DURING MEALS TO SEE HOW SHE TOLERATES.
--- NOTE | 2018-10-20 11:26 | NUR ---
PATIENT ABLE TO TOLERATE PO MEAL WITH SON AT BEDSIDE TODAY. REPORTS THAT MOTHER IS FEELING MUCH BETTER AND NO LONGER REPORTS THE NAUSEA SHE HAD FROM YESTERDAY.
--- NOTE | 2018-10-20 12:26 | NUR ---
BROUGHT LUNCH TRAY TO PATIENT. PATIENT WAVING THE FOOD AWAY AND REQUESTING TO LAY DOWN INSTEAD. WHEN SHOWING THE FOOD TO HER, SHE CONTINUES TO REFUSE.
--- NOTE | 2018-10-20 13:00 | NUR ---
PATIENT CALLING AND REQUESTING BP TO BE CHECKED. BP 150/86, PULSE 81. PATIENT APPEARS ANXIOUS AND STATES AGAIN SHE HASNT EATING FOR 7 DAYS WHEN SHE WAS ABLE TO EAT PORRIDGE HER SON PROVIDED FROM THIS MORNING. REASSURED PATIENT AND IS LESS RESTLESS AT THIS MOMENT.
--- NOTE | 2018-10-20 13:45 | NUR ---
Recommend continuing regular diet as tolerated.
--- NOTE | 2018-10-20 13:45 | NUR ---
Follow-up Nutrition Assessment: 243/A PHILLIP JULIAN CHARLES HR Dx: elevated trop, dehydration PMHx: HT for 16 years taking medication, Admitted for chest pain 3 days ago, ruled out ischemia. Labs: (10/19): K 3.2L, CA 7.6L, MG 1.3L Meds: Flagyl, lactinex, Zestril, zofran Diet: Regular PO Intake: (10/20) breakfast 80%, (10/17) lunch, dinner 40% each Weights: (10/13) 39 kg, (10/17) 36 kg, (10/20) 36 kg Skin: intact Josue: 19 I/Os: (10/19) 2180/ output not documented Edema: none GI: c/o loose stools Last BM: 10/19 RDN Visit (10/20): Patient was sleeping with no family at bedside. Per consultation report (10/19), patient stool is positive for Clostridium difficile. Per RN Octavia, patient ate porridge brought from home. Patient has very small liquidly stools. Per progress note (10/20), pt to continue iv flagyl and po vanco, once diarrhea has resolved dc planning will take in place. Patient had refused to take any ONS during last RD visit. Estimated Nutritional Needs Based on current body weight 36.8 kg Energy: 3135-5030 kcal/d (35-40 kcal/kg) - underweight Protein: 44-47.8g/d (1.2-1.3 g/kg) - geriatric maintenance Fluid: 8405-5417 ml/d (1 ml/kcal) or per doctor Nutrition Diagnosis 1. Malnutrition related to poor PO as evidenced by BMI 14.6 kg/m2. (ongoing) 2. Altered GI function related to medical condition as evidenced by diarrhea. (ongoing) 3. Inadequate oral intake related to poor appetite as evidenced by documented PO of 40% and self- reported poor PO. (ongoing) Intervention 1. Recommend continuing regular diet as tolerated. Monitor/Evaluate Goal: Have pt meet at least 75% of estimated needs Monitor: PO intake, Labs, GI function F/U in 2-3 days as high risk 10/22-
--- NOTE | 2018-10-20 14:48 | NUR ---
PATIENT SON REQUESTING AMA. DISCUSSED REASONS FOR AMA. STATES THE DOCTOR (UNAMED) FROM YESTERDAY STATES MOTHER COULD LEAVE TODAY AND DEMANDING PRESCRIPTIONS TO GO HOME. TOLD PATIENT AND SON THAT THE PLAN OF CARE FOR TODAY WAS TO OBSERVE HER AND CONTINUE WITH ANTIBIOTICS FOR ONE MORE DAY AND RE-EVALUATION IS NEEDED TOMORROW TO SEE IF SHE IS WELL ENOUGH TO GO HOME. PATIENT STATES HE WILL REDISCUSS WITH MOTHER.
--- NOTE | 2018-10-20 15:00 | NUR ---
FIELD SOFTWARE ENGINEER RENATE OF PATIENTS DESIRE TO AMA.
[2018-10-20 17:20] VITALS: BP 150/61
--- NOTE | 2018-10-20 17:48 | NUR ---
NEW 22G IV PLACED ON LFA. RFA IV REMOVED. SON AND MOTHER STILL INSISTING ON LEAVING TODAY , BUT IS WILLING TO STAY FOR PRESCRIPTIONS DURING DISCHARGE.
--- NOTE | 2018-10-20 18:47 | NUR ---
PATIENT SEEN RESTING IN BED WITH SON AT BEDSIDE. NO COMPLAINTS OF PAIN OR DISCOMFORT. NO APPARENT DISTRESS NOTED. IV ON LAC REMAINS SALINE LOCKED. WILL EDNROSE CARE TO ONCOMING RN.
--- NOTE | 2018-10-20 19:30 | NUR ---
RECIEVED PATIENT AT START OF SHIFT A/O X4, MANDARIN SPEAKING WITH SOME PRYDEINIG. PATIENT SHAKES HER HEAD WHEN ASKED IF IN PAIN. NO SOB ON RA. IV TO LAC IS SALINE LOCKED AND PATENT. BED LOCKED AND IN LOWEST POSIITON. CALL LIGHT AND BEDSIDE TABLE WITHIN REACH.
[2018-10-20 20:15] VITALS: BP 139/57
--- NOTE | 2018-10-21 01:05 | NUR ---
PATIENT IS AWAKE AND ASKED TO HAVE HER BLOOD PRESSURE TAKEN. ALL VITALS WNL, BP 144/ 78. IV SALINE LOCKED AND PATENT. CALL LIGHT WITHIN REACH.
[2018-10-21 05:43] VITALS: BP 155/72
--- NOTE | 2018-10-21 06:42 | NUR ---
PATIENT IS AWAKE, DENIES PAIN. IV INFUSING WITHOUT ERYTHEMA OR INFILTRATION. CALL LIGHT WITHIN REACH. BED LOCKED AND IN LOWEST POSITION. COMFORT AND SAFETY MAINTAINED THROUGHOUT SHIFT. WILL ENDORSE CARE TO DAYSHIFT NURSE.
--- NOTE | 2018-10-21 07:03 | NUR ---
RECEIVED PT FROM EXTRUDER OPERATOR HORIZONTAL NURSE. PT RESTING IN BED, AOX4, RESP E/U ON RA. NO ACUTE DISTRESS NOTED. SALINE LOCK TO LAC W/ NO ERYTHEMA OR EDEMA. CONTACT PRECAUTIONS MAINTAINED. BED IN LOWEST POSITION AND CALL LIGHT WITHIN REACH. WILL CONTINUE TO MONITOR.
[2018-10-21 07:20] VITALS: BP 158/64
[2018-10-21] MEDS ORDERED: FLA500 PO (10:03)
[2018-10-21] MEDS ORDERED: VANCOMYCIN HYD125 MG PO (10:04)
[2018-10-21 10:41] VITALS: BP 158/65
--- NOTE | 2018-10-21 11:04 | NUR ---
PT DISCHARGED. REVIEWED VISIT SUMMARY AND EDUCATIONAL PACKET W/ PT AND PT SON, INCLUDING NEW RX MEDS. PT AOX4, RESP E/U, VS STABLE, DENIES PAIN AT THIS TIME. IV TO LAC REOVED, CATH INTACT, GAUZE DRESSING APPLIED. PT DISCHARGE PAPERS SIGNED BY SON. ESCORTED TO DISCHARGE OFFICE VIA WHEELCHAIR BY ALISSA HOBBS W/ NO ACUTE INCIDENCE.
== END 2018-10-21 11:07 | disposition home or self-care (01) | DRG 248 ==
LOC: ED 09:00 → DU 11:11 → MU 11:34 → DU 12:07 → MU 10-18 12:41
PROVIDERS: Internal Medicine; ADMIT Internal Medicine
DX: A04.72 Enterocolitis due to Clostridium difficile, not specified as recurrent (principal); I21.A1 Myocardial infarction type 2; N17.0 Acute kidney failure with tubular necrosis; E86.0 Dehydration; E44.1 Mild protein-calorie malnutrition; D69.6 Thrombocytopenia, unspecified; I10 Essential (primary) hypertension; K59.00 Constipation, unspecified; I16.1 Hypertensive emergency; Z68.1 Body mass index [BMI] 19.9 or less, adult; Z90.49 Acquired absence of other specified parts of digestive tract
CPT/HCPCS: 83880; 87046; 87046-59; 97116-GP; G0378; J1956; J2405; J3475; J3490; J7030; Q0092